=== PATIENT | female | born 1950 | race Caucasian/White ===

== ENCOUNTER 2017-01-26 15:09 | Emergency (ER) | payer MEDICARE, OTHER ==
[~2017-01-26] VITALS: Ht 170.2 cm; Wt 56.0 kg
[2017-01-26 15:16] VITALS: BP 173/104; PULSE 80; RESP 18; TEMP 98.7; O2SAT 98
[2017-01-26 15:32] VITALS: BP 191/89; PULSE 78; RESP 18; O2SAT 98
--- NOTE | 2017-01-26 16:03 | PD ---
HPI Chief Complaint: Abdominal Pain Time Seen by Provider: 16:03 Travel History International Travel<30 days: No Contact w/Intl Traveler<30days: No Traveled to known affect area: No History of Present Illness HPI 66 year old female with PMH of GERD presents to the ED for evaluation of 3 day history of burning epigastric abdominal pain that radiates to the right shoulder. Patient states the pain is worse at night and wakes her from sleep. She endorses accompanying nausea. She denies fever, chills, difficulties swallowing food, chest pain, palpitations, dysuria. She endorses multiple small volume pencil thin bowel movements overnight. Denies BRBPR, melena, hematochezia. Denies history of abdominal surgery. She endorses previous endoscopy ~ 6 years ago. Last colonoscopy 10 years ago. She [place] primary care in [place] home [place], last seen ~1 year ago. PFSH Past Medical History GERD: Yes Influenza Vaccination: Yes ?: Not Past Surgical History Appendectomy: Yes Section: Yes (X 3) Social History Alcohol Use: Yes (2 BEERS DAILY) Tobacco Use: No Substance Use: No Allergies-Medications (Allergen,Severity, Reaction): Coded Allergies: No Known Allergies (Unverified , 01/26/17) Reported Meds & Prescriptions Reported Meds & Active Scripts Active No Active Prescriptions or Reported Medications Review of Systems Except as stated in HPI: all other systems reviewed are Neg Physical Exam Narrative GENERAL: Well-nourished, well-developed thin white female in no acute distress. SKIN: Focused skin assessment warm/dry. HEAD: Normocephalic. EYES: No scleral icterus. No injection or drainage. NECK: Supple, trachea midline. No JVD or lymphadenopathy. CARDIOVASCULAR: Regular rate and rhythm without murmurs, gallops, or rubs. RESPIRATORY: Breath sounds clear and equal bilaterally. No accessory muscle use. GASTROINTESTINAL: Abdomen soft, nondistended. TTP in the epigastric area and RUQ. NO masses or hepatosplenomegaly. Active bowel sounds. MUSCULOSKELETAL: No cyanosis, or edema. The patient is ambulatory and moves the extremities spontaneously. BACK: Nontender without obvious deformity. No CVA tenderness. Data Data Last Documented VS Vital Signs Date Time Temp Pulse Resp B/P Pulse Ox O2 Delivery O2 Flow Rate FiO2 01/26/17 17:34 77 16 156/87 97 Room Air 01/26/17 15:[address] Abd/Pel W Iv Contrast(Rout) (01/26/17 16:13) Iv Access Insert/Monitor (01/26/17 16:13) Sodium Chloride 0.9% Flush (Ns Flush) (01/26/17 16:15) Al-Mag Hy-Si 40-40-4 Mg/Ml Liq (Mag-Al P (01/26/17 16:15) Lidocaine 2% Viscous (Xylocaine 2% Visco (01/26/17 16:15) Complete Blood Count With Diff (01/26/17 16:42) Comprehensive Metabolic Panel (01/26/17 16:42) Lipase (01/26/17 16:43) Iohexol 350 Inj (Omnipaque 350 Inj) (01/26/17 17:55) Labs Laboratory Tests Test 01/26/17 16:40 White Blood Count 6.0 TH/MM3 Red Blood Count 4.90 MIL/MM3 Hemoglobin 14.8 GM/DL Hematocrit 45.3 % Mean Corpuscular Volume 92.4 FL Mean Corpuscular Hemoglobin 30.1 PG Mean Corpuscular Hemoglobin 32.6 % Concent Red Cell Distribution Width 13.5 % Platelet Count 207 TH/MM3 Mean Platelet Volume 7.0 FL Neutrophils (%) (Auto) 67.2 % Lymphocytes (%) (Auto) 21.3 % Monocytes (%) (Auto) 8.5 % Eosinophils (%) (Auto) 0.5 % Basophils (%) (Auto) 2.5 % Neutrophils # (Auto) 4.1 TH/MM3 Lymphocytes # (Auto) 1.3 TH/MM3 Monocytes # (Auto) 0.5 TH/MM3 Eosinophils # (Auto) 0.0 TH/MM3 Basophils # (Auto) 0.1 TH/MM3 CBC Comment DIFF FINAL Differential Comment Sodium Level 142 MEQ/L Potassium Level 3.6 MEQ/L Chloride Level 106 MEQ/L Carbon Dioxide Level 26.5 MEQ/L Anion Gap 10 MEQ/L Blood Urea Nitrogen 13 MG/DL Creatinine 0.75 MG/DL Estimat Glomerular Filtration 78 ML/MIN Rate Random Glucose 93 MG/DL Calcium Level 9.4 MG/DL Total Bilirubin 0.6 MG/DL Aspartate Amino Transf 17 U/L (AST/SGOT) Alanine Aminotransferase 25 U/L (ALT/SGPT) Alkaline Phosphatase 51 U/L Total Protein 7.4 GM/DL Albumin 4.1 GM/DL Lipase 178 U/L [facility] Medical Decision Making Medical Screen Exam Complete: Yes Emergency Medical Condition: Yes Differential Diagnosis GERD versus cholecystitis versus PUD versus gastroenteritis versus pancreatitis versus other Narrative Course 66 year old female with PMH of GERD presents to the ED for evaluation of 3 day history of burning epigastric abdominal pain that radiates to the right shoulder. Patient states the pain is worse at night and wakes her from sleep. She endorses accompanying nausea. She denies fever, chills, difficulties swallowing food, chest pain, palpitations, dysuria. She endorses multiple small volume pencil thin bowel movements overnight. Denies BRBPR, melena, hematochezia. Denies history of abdominal surgery. She endorses previous endoscopy ~ 6 years ago. Last colonoscopy 10 years ago. Vitals reviewed. Physical exam reveals a thin, nontoxic-appearing white female in no acute distress. Chest clear to auscultation bilaterally. Abdomen soft, nondistended. Tender to palpation epigastric and right upper quadrants. No masses or hepatosplenomegaly. Active bowel sounds. No CVA tenderness. IV was established. Patient was administered a GI cocktail. CBC and CMP are unremarkable. CT reveals no acute intra-abdominal process. Recheck of the patient reveals improvement of symptoms with the treatment. I suspect this is an exacerbation of the patient's GERD. She is instructed to continue with omeprazole but double the dose, take 1 in the morning and one just before bedtime. Eat a bland diet for the next few days and gradually reintroduce new foods, follow-up with her primary care provider and adult services librarian upon return home. We discussed reasons to return to the ED. She indicated understanding of the instructions and is agreeable to plan of care. She stable and discharged home. Diagnosis Primary Impression: Epigastric abdominal pain Referrals: [facility] Patient Instructions: Gastroesophageal Reflux Disease (ED), General Instructions Additional Instructions: Rest, hydrate. Take omeprazole once daily and once at bedtime. Follow up with your PCP or adult services librarian. Return to the ED for any urgent or emergent medical condition. Scripts No Active Prescriptions or Reported Meds Disposition: 01 DISCHARGE HOME Condition: Stable Griselda Pavon Jan 26, 2017 16:03
[2017-01-26] MEDS ORDERED: SODIUM CHLORIDE 0.9% FLUSH 10 ML FLUSH IV FLUSH PRN (16:15)
[2017-01-26] MEDS ORDERED: ALUMINUM/MAGNESIUM/SIMETH 30 ML CUP PO ONE (16:15)
[2017-01-26] MEDS ORDERED: LIDOCAINE VISCOUS 2% SOLN 15 ML UDC PO ONE (16:15)
[2017-01-26 16:52] LABS: AUTOMATED NEUTROPHIL # 4.1 TH/MM3 (1.8-7.7); BASOPHIL # 0.1 TH/MM3 (0-0.2); BASOPHIL % 2.5 % (0.0-2.0); EOSINOPHIL % 0.5 % (0.0-4.0); HEMATOCRIT 45.3 % (35.0-46.0); HEMO FLAGS DIFF FINAL; LYMPH % 21.3 % (9.0-44.0); LYMPHOCYTE # 1.3 TH/MM3 (1.0-4.8); MEAN CELL VOLUME 92.4 FL (80.0-100.0); MEAN CORPUSCULAR HEMOGLOBIN 30.1 PG (27.0-34.0); MEAN CORPUSCULAR HGB CONC 32.6 % (32.0-36.0); MONO % 8.5 % (0.0-8.0); NEUT % 67.2 % (16.0-70.0); PLATELET COUNT 207 TH/MM3 (150-450); RED CELL DISTRIBUTION WIDTH 13.5 % (11.6-17.2)
[2017-01-26 16:59] LABS: CHLORIDE 106 MEQ/L (98-107); POTASSIUM 3.6 MEQ/L (3.5-5.1); SODIUM (NA) 142 MEQ/L (136-145)
[2017-01-26 17:03] LABS: ANION GAP 10 MEQ/L (5-15); BICARBONATE 26.5 MEQ/L (21.0-32.0); BLOOD UREA NITROGEN 13 MG/DL (7-18)
[2017-01-26 17:06] LABS: ALT (GPT) 25 U/L (10-53); AST (GOT) 17 U/L (15-37); GLOMERULAR FILTRATION RATE 78 ML/MIN (>89)
[2017-01-26 17:07] LABS: TOTAL BILIRUBIN ADULT 0.6 MG/DL (0.2-1.0)
[2017-01-26 17:09] LABS: ALKALINE PHOSPHATASE 51 U/L (45-117)
[2017-01-26 17:34] VITALS: BP 156/87; PULSE 77; RESP 16; O2SAT 97
[2017-01-26] MEDS ORDERED: IOHEXOL 350 MG/ML 10 ML VIAL (for RAD DIAG) IV ONE (17:55)
--- NOTE | 2017-01-26 18:02 | RADHPO ---
EXAM DATE/TIME: 01/26/2017 17:36 [facility] COMPARISON: No previous studies available for comparison. INDICATIONS : Epigrastic pain. IV CONTRAST: 70 cc Omnipaque 350 (iohexol) IV ORAL CONTRAST: No oral contrast ingested. RADIATION DOSE: 4.99 CTDIvol (mGy) MEDICAL HISTORY : Gastroesophageal reflux disease. SURGICAL HISTORY : section. ENCOUNTER: Initial ACUITY: 1 day PAIN SCALE: 4/10 LOCATION: Abdomen TECHNIQUE: Volumetric scanning of the abdomen and pelvis was performed. Using automated exposure control and ad justment of the mA and/or kV according to patient size, radiation dose was kept as low as reasonably achievable to obtain optimal diagnostic quality images. FINDINGS: CT Abdomen: There are 2 tiny subcentimeter cysts in the right hepatic lobe. There is an approximate 4 mm nonobstructing stone in the left kidney. The spleen, pancreas, right kidney, adrenals are unremar kable. There is no evidence for any appreciable pathological adenopathy, free fluid, or bowel obstruc tion. Slight degree of somewhat linear irregular opacity is seen in the left lung base mostly consis tent with scarring. There is evidence for old fracture of L1 transverse process. CT pelvis: There is no evidence for mass, abscess formation, or any significant adenopathy within the pelvis. CONCLUSION: Tiny nonobstructing stone in the left kidney and a couple of tiny cysts in the liver. Agustín Milner MD on January 26, 2017 at 17:56 Board Certified Radiologist. This report was verified electronically.
== END 2017-01-26 18:32 | disposition home or self-care (01) ==
LOC: PHEFT 15:09
DX: R10.13 Epigastric pain (principal); K21.9 Gastro-esophageal reflux disease without esophagitis
CPT/HCPCS: 74177; 80053; 83690; 85025; 99284; Q9967